=== PATIENT | female | born 1990 | race American Indian/Alaskan Native ===

== ENCOUNTER 2020-01-01 01:20 | Emergency (ER) | payer MEDICAID ==
[2020-01-01 05:17] LABS: Bacteria,Urine 1+ /HPF (Negative); Bilirubin,Urine NEG (Negative); Blood,Urine NEG (Negative); Calcium Oxalate Crystals,Urine 1+; Color,Urine Yellow (Yellow); Mucus,Urine 1+ /HPF; Urobilinogen,Urine < 2.0 mg/dL (<2.0)
[2020-01-01 05:27] LABS: HCG Qualitative,Urine Negative (Negative)
[2020-01-01] MEDS ORDERED: KETOROLAC 60 MG/2 ML INJ IM ONE (08:57)
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
[2020-01-01 09:58] VITALS: BP 150/104
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
== END 2020-01-01 10:21 | disposition home or self-care (01) ==
LOC: ED 01:20
DX: M54.5 Low back pain (principal); R20.2 Paresthesia of skin; Z79.1 Long term (current) use of non-steroidal anti-inflammatories (NSAID); Z79.899 Other long term (current) drug therapy; V47.5XXA Car driver injured in collision with fixed or stationary object in traffic accident, initial encounter; Y93.89 Activity, other specified; Y92.410 Unspecified street and highway as the place of occurrence of the external cause; Y99.8 Other external cause status
CPT/HCPCS: 72131; 81001; 81025; 96372; 99284; J1885